=== PATIENT | female | born 1965 | race Caucasian/White ===

== ENCOUNTER 2021-03-18 10:35 | Inpatient (IN) | payer OTHER ==
[~2021-03-18] VITALS: Ht 157.5 cm; Wt 77.1 kg
[2021-03-18] MEDS ORDERED: TRAMADOL HCL E100 MG (10:47)
--- NOTE | 2021-03-18 10:50 | NUR ---
SE RECIBE PTE EN AMBULANCIA ALERTA Y ORIRNTADA X3,REFERIDA DE UN CRUCERO ,LOS PARMEDICOS REFIEREN QUE LA PTE TIENE DOLOR ABDOMINAL LADO DERECHO POSIBLE APENDICITIS.
--- NOTE | 2021-03-18 11:46 | NUR ---
SE EJECUTA ORDEN MEDEICA EN SANTA TOTALIDAD, PACIENTE AL MOMENTO SE MANTIENE EN OBSERVACION EN ESPERA DE RESULTADOS DE LABORATORIO.
[2021-03-21] MEDS ORDERED: OMEPRAZOLE-BIC1 EACH PO (08:34)
[2021-03-21] MEDS ORDERED: AMOX1TAB5 PO (08:34)
== END 2021-03-21 13:15 | disposition home or self-care (01) | DRG 340 ==
LOC: ER 10:35 → O/R 15:49 → SEC-K 15:49 → SURG 15:49 → O/R 20:59 → SURG 03-19 00:45
PROVIDERS: ADMIT Surgery; ATTEND Surgery
PROC: BW2110Z Computerized Tomography (CT Scan) of Abdomen and Pelvis using Low Osmolar Contrast, Unenhanced and Enhanced (ICD-10-PCS; 2021-03-18)
PROC: 0DTJ0ZZ Resection of Appendix, Open Approach (ICD-10-PCS; principal; 2021-03-18 21:00)
DX: K35.32 Acute appendicitis with perforation, localized peritonitis, and gangrene, without abscess (principal); Z20.822 Contact with and (suspected) exposure to COVID-19